=== PATIENT | female | born 1975 | race Caucasian/White ===

== ENCOUNTER → 2018-01-10 | Outpatient (CLI) | payer OTHER ==
[~2018-01-10] MED LIST: MULTI-VITAMIN1 EACH PO
--- NOTE | 2018-01-10 19:41 | Diagnostic Imaging Report ---
EXAMINATION: ABDOMEN-1VIEW (KUB) 01/10/2018 6:34 PM COMPARISON: 08/24/2017 INDICATION: Calculus of kidney DISCUSSION: 1 view of the abdomen (AP supine) Nonobstructive bowel gas pattern No evidence of pneumoperitoneum. Questionable 3 mm calcification projected over the midpole of the left kidney. Bones and soft tissues are unremarkable. IMPRESSION: Nonobstructive bowel gas pattern. Questionable 3 mm calcification projected over the midpole of the left kidney. Hermes Singleton MD Signed by: Dr. Hermes Singleton M.D. on 01/10/2018 7:38 PM
== END | disposition home or self-care (01) ==
LOC: RAD 18:04
PROVIDERS: ATTEND Urology
DX: N20.0 Calculus of kidney (principal)
CPT/HCPCS: 74018; 81025

== ENCOUNTER → 2018-01-18 | Outpatient (CLI) | payer OTHER ==
--- NOTE | 2018-01-18 18:39 | Diagnostic Imaging Report ---
PROCEDURE: CT ABDOMEN AND PELVIS WITHOUT CONTRAST TECHNIQUE: The abdomen and pelvis were scanned utilizing a multidetector helical scanner from the diaphragm to the lesser trochanter after the oral administration of water. No IV contrast was administered per protocol. Coronal and sagittal multiplanar reformations were obtained. COMPARISON: Patients [facility], CT, CT ABDOMEN/PELVIS , 08/03/2017, 13:21. INDICATIONS: CALCULUS OF KIDNEY FINDINGS: ABSENCE OF INTRAVENOUS CONTRAST DECREASES SENSITIVITY FOR DETECTION OF FOCAL LESIONS AND VASCULAR PATHOLOGY. LOWER THORAX: Unremarkable HEPATOBILIARY: No focal hepatic lesions. No biliary ductal dilatation. Gallbladder is unremarkable. SPLEEN: No splenomegaly. PANCREAS: No focal masses or ductal dilatation. ADRENALS: No adrenal nodules. KIDNEYS/URETERS: The previously visualized 0.5 cm nonobstructing calculus in the left interpolar region and 0.3 cm non-obstructing calculus in the posterior mid to inferior left kidney are not seen on the current exam. There are 4 stable punctate hyperdensities, likely reflecting nonobstructing calculi and/or Ciro's plaques (series 3, images 56, 62 and 72). No other renal or ureteral calculi. No hydronephrosis or obstruction. No significant perinephric stranding. Lobulated appearance of lower aspect of bilateral kidneys may represent cortical scarring. PELVIC ORGANS/BLADDER: No focal lesions or bladder calculi. The uterus is unremarkable. No adnexal masses. PERITONEUM / RETROPERITONEUM: No free air or fluid. LYMPH NODES: No lymphadenopathy. VESSELS: Unremarkable. GI TRACT: No bowel dilation or evidence of obstruction. Appendix is well identified and normal in caliber. BONES AND SOFT TISSUES: No aggressive lytic lesion. Stable tiny fat-containing of multiple hernia. IMPRESSION: 1. 4 stable punctate hyperdensities in the left kidney likely represent nonobstructing calculi and/or Ciro's plaques. Previously visualized 0.5 and 0.3 cm nonobstructing calculi in the left kidney are not seen on the current exam. No right renal, any ureteral calculi, hydronephrosis, or obstruction. Yayo Kelly M.D. Dictated by: Yayo Kelly M.D. on 01/18/2018 at 18:40 Electronically approved by: Yayo Kelly M.D. on 01/18/2018 at 18:40
== END ==
LOC: CT 15:50
PROVIDERS: ATTEND Urology
DX: N20.0 Calculus of kidney (principal)
CPT/HCPCS: 74176; 81025

== ENCOUNTER 2018-11-12 07:19 | Emergency (ER) | payer OTHER ==
[~2018-11-12] VITALS: Ht 160 cm; Wt 81.6 kg
--- OUTSIDE RECORDS SUMMARY | 2018-11-12 07:22 | XMS REPORT ---
Author Author [facility] Address Unknown Phone Unavailable Care Team Providers Care [employer] Stitcher Name Role Phone BIBIANA VILLA Unavailable Unavailable Payers Payer Name Policy Type Policy Number Effective Date Expiration Date Problems This patient has no known problems. Allergies, Adverse Reactions, Alerts Allergy Name Allergy Type Status Severity Reaction(s) Onset Date Inactive Date Treating Clinician Comments No Known Allergies DA Active U 2011-10-20 00:00:00 Medications This patient has no known medications. Results Test Description Test Time Test Comments Text Results Atomic Results Result Comments CT ABDOMEN/PELVIS WO [place] [address] Patient Name: HERMES VIDAL V MR #: [id number] : 1975 Age/Sex: 42/F Req #: [id number] Adm Physician: Ordered by: BIBIANA VILLA MD Report #: [id number] Location: CT Room/Bed: Procedure: [id number] CT/CT ABDOMEN/PELVIS WO Exam Date: 01/18/18 Exam Time: 1650 REPORT STATUS: Signed PROCEDURE: CT ABDOMEN AND PELVIS WITHOUT CONTRAST TECHNIQUE: The abdomen and pelvis were scanned utilizing a multidetector helical scanner from the diaphragm to the lesser trochanter after the oral administration of water. No IV contrast was administered per protocol. Coronal and sagittal multiplanar reformations were obtained. COMPARISON: [facility], CT, CT ABDOMEN/PELVIS , 08/03/2017, 13:21. INDICATIONS: CALCULUS OF KIDNEY FINDINGS: ABSENCE OF INTRAVENOUS CONTRAST DECREASES SENSITIVITY FOR DETECTION OF FOCAL LESIONS AND VASCULAR PATHOLOGY. LOWER THORAX: Unremarkable HEPATOBILIARY: No focal hepatic lesions. No biliary ductal dilatation. Gallbladder is unremarkable. SPLEEN: No splenomegaly. PANCREAS: No focal masses or ductal dilatation. ADRENALS: No adrenal nodules. KIDNEYS/URETERS: The previously visualized 0.5 cm nonobstructing calculus in the left interpolar region and 0.3 cm non- obstructing calculus in the posterior mid to inferior left kidney are not seen on the current exam. There are 4 stable punctate hyperdensities, likely reflecting nonobstructing calculi and/or Ciro's plaques (series 3, images 56, 62 and 72). No other renal or ureteral calculi. No hydronephrosis or obstruction. No significant perinephric stranding. Lobulated appearance of lower aspect of bilateral kidneys may represent cortical scarri ng. PELVIC ORGANS/BLADDER: No focal lesions or bladder calculi. The uterus is unremarkable. No adnexal masses. PERITONEUM / RETROPERITONEUM: No free air or fluid. LYMPH NODES: No lymphadenopathy. VESSELS: Unremarkable. GI TRACT: No bowel dilation or evidence of obstruction. Appendix is well identified and normal in caliber. BONES AND SOFT TISSUES: No aggressive lytic lesion. Stable tiny fat-containing of multiple hernia. IMPRESSION: 1. 4 stable punctate hyperdensities in the left kidney likely represent nonobstructing calculi and/or Ciro's plaques. Previously visualized 0.5 and 0.3 cm nonobstructing calculi in the left kidney are not seen on the current exam. No right renal, any ureteral calculi, hydronephrosis, or obstruction. Jeb Kelly M.D. Dictated by: Jeb Kelly M.D. on 01/18/2018 at 18:40 Electronically approved by: Jeb Kelly M.D. on 01/18/2018 at 18:40 Dictated By: JEB KELLY MD 39 Transcribed By: AIDEN on 01/18/181839 COPY TO: BIBIANA VILLA MD ABDOMEN-1VIEW (KUB) [place] [address] Patient Name: HERMES VIDAL V MR #: [id number] : 1975 Age/Sex: 42/F Req #: [id number] Adm Physician: Ordered by: BIBIANA VILLA MD Report #: [id number] Location: [facility] Room/Bed: Procedure: [id number] DX/ABDOMEN-1VIEW (KUB) Exam Date: 01/10/18 Exam Time: 1834 REPORT STATUS: Signed EXAMINATION: ABDOMEN-1VIEW (KUB) 01/10/2018 6:34 PM COMPARISON: 08/24/2017 INDICATION: Calculus of kidney DISCUSSION: 1 view of the abdomen (AP supine) Nonobstructive bowel gas pattern No evidence of pneumoperitoneum. Questionable 3 mm calcification projected over the midpole of the left kidney. Bones and soft tissues are unremarkable. IMPRESSION: Nonobstructive bowel gas pattern. Questionable 3 mm calcification projected over the midpole of the left kidney. Monique Singleton MD Signed by: Dr. Monique Singleton M.D. on 01/10/2018 7:38 PM Dictated By: MONIQUE SINGLETON MD 37 Transcribed By: SUE on 01/10/181937 COPY TO: BIBIANA VILLA MD ABDOMEN-1VIEW (KUB) [place] [address] Patient Name: HERMES VIDAL V MR #: [id number] : 1975 Age/Sex: 42/F Req #: [id number] Adm Physician: Ordered by: BIBIANA VILLA MD Report #: [id number] Location: OR Room/Bed: Procedure: [id number] DX/ABDOMEN-1VIEW (KUB) Exam Date: 08/24/17 Exam Time: 0720 REPORT STATUS: Signed PROCEDURE: X-RAY ABDOMEN - KUB COMPARISON: KUB 07/20/2017. CT abdomen and pelvis without contrast 08/03/2017.. INDICATIONS: PRE-OP FINDINGS: 3-4 mm left upper pole renal calculus is unchanged. Additional smaller calculi are identified on the comparison CT scan are not visualized by plain radiography. No additional renal, ureteral, or bladder calculi. Bowel gas pattern is nonobstructive. Regional skeletal structures are intact. CONCLUSION: 3 mm left upper pole renal calculus. Additional punctate left renal calculi described on the comparison CT examination are not visualized by plain radiography. Dictated by: Arnaldo Griffin M.D. on 08/24/2017 at 7:48 Electronically approved by: Arnaldo Griffin M.D. on 08/24/2017 at 7:48 Dictated By: ARNALDO GRIFFIN MD E lectronically Signed By: ARNALDO GRIFFIN MD on 08/24/1748 Transcribed By: AIDEN on 08/24/1748 COPY TO: BIBIANA VILLA MD CT ABDOMEN/PELVIS [place] [address] Patient Name: HERMES VIDAL V MR #: [id number] : 1975 Age/Sex: 42/F Req #: [id number] [facility] Physician: Ordered by: BIBIANA VILLA MD Report #: [id number] Location: CT Room/Bed: Procedure: [id number] CT/CT ABDOMEN/PELVIS WO Exam Date: 08/03/17 Exam Time: 1325 REPORT STATUS: Signed PROCEDURE: CT ABDOMEN AND PELVIS WITHOUT CONTRAST TECHNIQUE: The abdomen and pelvis were scanned utilizing a multidetector helical scanner from the diaphragm to the lesser trochanter after the oral administration of water. No IV contrast was administered because of renal stone protocol. Coronal and sagittal multiplanar reformations were obtained. DLP: 585.2 mGy-cm COMPARISON: Abdominal CT from 01/20/2015 INDICATIONS: CALCULUS OF KIDNEY FINDINGS: ABSENCE OF INTRAVENOUS CONTRAST DECREASES SENSITIVITY FOR DETECTION OF FOCAL LESIONS AND VASCULAR PATHOLOGY. LOWER THORAX: Normal. HEPATOBILIARY: No focal hepatic lesions. No biliary ductal dilatation. SPLEEN: No splenomegaly. PANCREAS: No focal masses or ductal dilatation. ADRENALS: No adrenal nodules. KIDNEYS/URET ERS: No hydronephrosis or suspicious contour abnormalities. Mild left renal scarring. Non-obstructing left renal calculi measure up to 0.5 cm, approximately 5 noted although one or two of these may represent Ciro's plaques. No right renal calculi. No ureteral calculi. PELVIC ORGANS/BLADDER: Urinary bladder is collapsed, limiting evaluation. Otherwise, unremarkable. PERITONEUM / RETROPERITONEUM: No free air or fluid. LYMPH NODES: No lymphadenopathy. VESSELS: Unremarkable. GI TRACT: No distention or wall thickening. Few scattered colonic diverticula without dany dence of diverticulitis. Appendix is normal. BONES AND SOFT TISSUES: Unremarkable. IMPRESSION: 1. Left nephrolithiasis. 2. Mild colonic diverticulosis without evidence of diverticulitis. Dictated by: Cristian Rinaldi M.D. on 08/03/2017 at 13:56 Electronically approved by: Cristian Rinaldi M.D. on 08/03/2017 at 13:56 Dictated By: CRISTIAN RINALDI MD 1356 Transcribed By: AIDEN on 08/03/17 1356 COPY TO: BIBIANA VILLA MD ABDOMEN-1VIEW (KUB) [place] [address] Patient Name: HERMES VIDAL V MR #: [id number] : 1975 Age/Sex: 42/F Req #: [id number] Adm Physician: Ordered by: BIBIANA VILLA MD Report #: [id number] Location: Room/Bed: Procedure: [id number] DX/ABDOMEN-1VIEW (KUB) Exam Date: 07/20/17 Exam Time: 1545 REPORT STATUS: Signed PROCEDURE: X-RAY ABDOMEN - KUB COMPARISON: [facility], US, US RETROPERITONEAL ( KIDNEY )., 07/20/2017, 14:45. [facility], DX, ABDOMEN-1VIEW (KUB), 05/05/2015, 14:25. INDICATIONS: CALCULUS OF KIDNEY FINDINGS: There is a non-obstructed bowel-gas pattern. Punctate calcific density projected on the left renal shadow.. There are no acute osseous abnormalities. Facet arthropathy at left L4-L5. DJD of SI joints bilaterally. CONCLUSION: Left renal calculus. Gisela Paiz M.D. Dictated by: Gisela Paiz M.D. on 07/20/2017 at 16:25 Electronically approved by: Gisela Paiz M.D. on 07/20/2017 at 16:25 Dictated By: SEBASTIAN PAIZ MD, MD 24 Transcribed By: AIDEN on 07/20/171624 COPY TO: BIBIANA VILLA MD RENAL RETROPERITONEAL COMP [place] [address] Patient Name: HERMES VIDAL V MR #: [id number] : 1975 Age/Sex: 42/F Req #: [id number] [facility] Physician: Ordered by: BIBIANA VILLA MD Report #: [id number] Location: US Room/Bed: Procedure: [id number] US/US RENAL RETROPERITONEAL COMP Exam Date: 07/20/17 Exam Time: 1445 REPORT STATUS: Signed EXAM: Renal Ultrasound INDICATION: CALCULUS OF KIDNEY COMPARISON: 12/26/2014. TECHNIQUE: Transverse and longitudinal images of the kidneys and bladder were obtained. FINDINGS: Right Kidney: Length: 11.8 cm Appearance: Normal echogenicity. Collecting system: No hydronephrosis Stones: No shadowing echogenic focus in the lower pole measures 0.7 x 0.7 x 0.6 cm. Cyst/Mass: None Left Kidney: Length: 11.3 cm Appearance: Normal echogenicity. Collecting system: No hydronephrosis Stones: No shadowing echogenic focus in the lower pole measures 0.7 x 1.1 x 0.6 cm. Cyst/Mass: None Bladder: Normal. Bilateral ureteral jets noted. IMPRESSION: Single bilateral nonobstructing renal calculi, the largest on the left lower pole measuring 1.1 cm. No hydronephrosis. Signed by: Dr. Gisela Paiz M.D. on 07/20/2017 4:49 PM Dictated By: SEBASTIAN PAIZ MD, MD 48 Transcribed By: SUE on 07/20/171648 COPY TO: BIBIANA VILLA MD
[2018-11-12] MEDS ORDERED: KETOROLAC TROMETHAMINE 30 MG/ML VIAL IV STA (07:54)
[2018-11-12 08:11] LABS: CLARITY,URINE HAZY (CLEAR); COLOR,URINE BROWN (YELLOW)
[2018-11-12 08:12] LABS: BACTERIA,URINE FEW /HPF; BILIRUBIN,URINE 1+ (NEGATIVE); EPITHELIAL CELLS,URINE FEW /LPF; KETONES,URINE NEGATIVE (NEGATIVE); LEUKOCYTE ESTERASE ,URINE TRACE (NEGATIVE); NITRITE,URINE NEGATIVE (NEGATIVE); PROTEIN,URINE DIPSTICK 2+ (NEGATIVE); RBC,URINE >50 /HPF (0-5); URINE UROBILINOGEN 0.2 mg/dL (0.2 - 1); WBC,URINE (MAN) 0-5 /HPF (0-5)
[2018-11-12 08:13] LABS: AMORPHOUS SEDIMENT,URINE MODERATE (FEW)
[2018-11-12 08:14] LABS: PREGNANCY TEST, URINE NEGATIVE (NEGATIVE)
[2018-11-12 08:14] LABS: BASOPHILS % 0.6 % (0.0-1.0); EOSINOPHILS # (AUTO) 0.2 (0.0-0.4); EOSINOPHILS % 2.7 % (0.0-6.0); HEMATOCRIT 39.7 % (34.2-44.1); HEMOGLOBIN 13.3 g/dL (12.0-16.0); LYMPHOCYTES # (AUTO) 1.6 (1.0-3.2); MEAN CORPUSCULAR HGB CONC 33.5 g/dL (31-35); MEAN CORPUSCULAR VOLUME 86.5 fL (81-99); MONOCYTES # (AUTO) 0.4 (0.2-0.8); MONOCYTES % 6.6 % (4.4-11.3); NEUTROPHILS # (AUTO) 4.1 (2.1-6.9); NEUTROPHILS % 64.2 % (38.7-80.0); PLATELET COUNT 311 x10e3/uL (140-360); RED BLOOD COUNT 4.59 x10e6/uL (3.6-5.1); RED CELL DISTRIBUTION WIDTH 12.4 % (11.7-14.4)
[2018-11-12] MEDS ORDERED: ONDANSETRON HCL INJ 2MG/ML 2ML 2 MG/ML VIAL IV NR (08:19)
[2018-11-12 08:33] LABS: ANION GAP 13.9 mmol/L (8-16); BLOOD UREA NITROGEN 10 mg/dL (7-26); BUN/CREATININE RATIO 14 (6-25); CALCIUM 9.3 mg/dL (8.4-10.2); CARBON DIOXIDE 21 mmol/L (22-29); CHLORIDE 102 mmol/L (98-107); EST GLOMERULAR FILTRATION RATE > 60 ML/MIN (60-); GLUCOSE 92 mg/dL (74-118); POTASSIUM 3.9 mmol/L (3.5-5.1); SODIUM 133 mmol/L (136-145)
--- NOTE | 2018-11-12 09:17 | Diagnostic Imaging Report ---
EXAM: CT Abdomen and Pelvis WITHOUT contrast INDICATION: Bilateral flank pain with dark urine x1 week. ^STONE PROTOCOL COMPARISON: CT abdomen and pelvis 01/18/2018. TECHNIQUE: Abdomen and pelvis were scanned utilizing a multidetector helical scanner from the lung base to the pubic symphysis without administration of IV contrast. Absence of intravenous contrast decreases sensitivity for detection of focal lesions and vascular pathology. Coronal and sagittal reformations were obtained. Stone protocol is performed. IV CONTRAST: None ORAL CONTRAST: Water COMPLICATIONS: None RADIATION DOSE: Total DLP: 627.05 mGy*cm Estimated effective dose: (DLP x 0.015 x size factor) mSv CTDIvol has been reviewed. It is below the limits set by the Radiation Protocol Committee (RPC). FINDINGS: LINES and TUBES: None. LOWER THORAX: Unremarkable HEPATOBILIARY: No focal hepatic lesions. No biliary ductal dilation. GALLBLADDER: No radio-opaque stones or sludge. No wall thickening. SPLEEN: No splenomegaly. PANCREAS: No focal masses or ductal dilatation. ADRENALS: No adrenal nodules KIDNEYS/URETERS: No hydronephrosis. Chronic scarring left kidney. No cystic or solid mass lesions. 4 punctate 1 to 2 mm stones in the left kidney. Punctate hyperdensities in the right kidney, likely developing stones. GI TRACT: No abnormal distention, wall thickening, or evidence of bowel obstruction. Appendix is normal. PELVIC ORGANS/BLADDER: 2 mm hyperdensity in the dependent portion of the bladder (series 3, image 162). Consistent with a recently passed stone. LYMPH NODES: No lymphadenopathy. VESSELS: Unremarkable. PERITONEUM / RETROPERITONEUM: No free air or fluid. BONES: Unremarkable. SOFT TISSUES: Unremarkable. IMPRESSION: 1. Unchanged 4 left renal stones. Subtle hyperdensities in the right kidney, likely developing stones. 2. 0.2 cm stone in the bladder. No hydronephrosis. Signed by: Dr. Braden Parker M.D. on 11/12/2018 9:14 AM
[2018-11-12] MEDS ORDERED: SODIUM CHLORIDE 0.9% 1000ML 1,000 ML ONE (09:38)
[2018-11-12] MEDS ORDERED: SODIUM CHLORIDE 0.9% 1000ML 1,000 ML IV SCH (09:45)
[2018-11-12] MEDS ORDERED: ACETAMINOPHEN 325 MG TAB PO ONE (10:15)
== END 2018-11-12 11:11 | disposition home or self-care (01) ==
LOC: ER 07:19
DX: M54.5 Low back pain (principal); R11.2 Nausea with vomiting, unspecified; R31.9 Hematuria, unspecified; N20.0 Calculus of kidney
CPT/HCPCS: 36415; 74176; 80048; 81001; 81025; 85025; 99284; J1885; J2405; J7030

== ENCOUNTER → 2018-11-16 | Outpatient (CLI) | payer OTHER ==
[~2018-11-16] MED LIST changes: +FUROSEMIDE INJ 10 MG/ML 4 ML VIAL ONE
--- NOTE | 2018-11-16 11:01 | Diagnostic Imaging Report ---
Exam: Abdominal film Clinical History: Kidney stones Comparison: CT abdomen and pelvis 11/12/2018 DISCUSSION: No calcifications are identified projecting over the renal shadows or expected ureteral courses. Punctate bilateral renal calculi described on the comparison CT are not identified by plain radiography. Bowel gas pattern shows no dilated, air-filled loops of bowel. No mass effect or organomegaly. Regional skeletal structures are intact. IMPRESSION: Punctate bilateral renal calculi described on the comparison CT are not identified by plain radiography. Signed by: Dr. Yordan Jaquez M.D. on 11/16/2018 10:58 AM
--- NOTE | 2018-11-16 17:19 | Diagnostic Imaging Report ---
Renal Scan with Lasix [place] Clinical information: Renal calculi Technique: Following intravenous administration of 11.5 mCi of Tc-99m MAG3, dynamic images of the kidneys in the posterior projection were obtained through 40 minutes. Lasix 40 mg was administered intravenously at 40 minutes post injection of the tracer. Report: Left kidney: Perfusion of the left kidney is prompt. The kidney has a distorted reniform shape with slightly irregular contours. Extraction of tracer from the blood pool by the remaining renal parenchyma is normal. Clearance of tracer from the renal parenchyma is prompt. The pelvicalyceal system is not dilated although calices are prominent throughout the kidney. Some increased pooling of tracer is seen within the prominent calices. Drainage of tracer from the pelvicalyceal system is prompt and adequate prior to administration of Lasix. No significant stasis of tracer is seen within the left ureter. Right kidney: Perfusion to the right kidney is prompt. The right kidney has a normal reniform shape. Extraction of tracer by the renal parenchyma is normal. Clearance of tracer from the renal parenchyma is prompt. The pelvicalyceal system is not dilated although some of the calices are slightly prominent. Some increased pooling of tracer is seen within the pelvicalyceal system. Drainage of tracer from the pelvicalyceal system is prompt and adequate prior to administration of Lasix. No significant stasis of tracer is seen within the right ureter. Differential renal function: The left kidney contributes 40% of total renal function and the right kidney contributes 60% (normal 43-57%). Impression: 1. Some scarring is present in the left kidney and this accounts for the decreased differential function of 40%. The function of the remaining renal parenchyma is normal. No hydronephrosis is present. No physiologically significant obstruction of the renal collecting system is present. 2. The function of the right kidney is generally normal. No hydronephrosis is present. No physiologically significant obstruction of the renal collecting system is present. Signed by: Dr. Zunilda Beal M.D. on 11/16/2018 5:16 PM
== END ==
LOC: NM 10:02
PROVIDERS: ATTEND Urology
DX: N20.0 Calculus of kidney (principal)
CPT/HCPCS: 74018; 78708; A9562; J1940

== ENCOUNTER → 2019-01-03 | Outpatient (CLI) | payer OTHER ==
[~2019-01-03] MED LIST changes: -FUROSEMIDE INJ 10 MG/ML 4 ML VIAL ONE; +IOPAMIDOL 370 MG/ML 200 ML INFUS..BTL INJ ONE; +SODIUM CHLORIDE 0.9% 50ML 50 ML ONE
--- NOTE | 2019-01-03 12:27 | Diagnostic Imaging Report ---
EXAM: CT Abdomen and pelvis without and with contrast INDICATION: Renal calculus, gross hematuria COMPARISON: CT abdomen and pelvis without contrast 11/12/2018. TECHNIQUE: Abdomen and pelvis were scanned utilizing a multidetector helical scanner from the lung base to the pubic symphysis after administration of IV contrast. Noncontrast images were obtained through the abdomen and pelvis. Arterial and portal venous phase images were obtained to the abdomen. Delayed images were obtained through the abdomen and pelvis. Coronal and sagittal reformations were obtained. Combination of renal mass protocol and hematuria protocol was performed. IV CONTRAST: 100 cc of Isovue-370. ORAL CONTRAST: Water COMPLICATIONS: None RADIATION DOSE: Total DLP: 1948.1 mGy*cm Estimated effective dose: (DLP x 0.015 x size factor) mSv Dose modulation, iterative reconstruction, and/or weight based adjustment of the mA/kV was utilized to reduce the radiation dose to as low as reasonably achievable. FINDINGS: LINES and TUBES: None. LOWER THORAX: Unremarkable HEPATOBILIARY: No focal hepatic lesions. No biliary ductal dilation. GALLBLADDER: Decompressed and otherwise unremarkable in appearance. SPLEEN: No splenomegaly. PANCREAS: No focal masses or ductal dilatation. ADRENALS: No adrenal nodules KIDNEYS/URETERS: No hydronephrosis. No cystic or solid mass lesions. There are multiple punctate 1 to 2 mm left-sided renal stones, some of which are slightly more conspicuous, for example in left lower pole on image 68. Two punctate 1 mm stones in the left upper pole kidney are new (series 3, images 46 and 47). No right renal stone. There are bilateral wedge-shaped cortical renal defects, left greater than right. Delayed images demonstrates opacification of the collecting system and portions of the bilateral ureters. No evidence of urothelial lesion. Bilateral ureteral jets are present. GI TRACT: No abnormal distention, wall thickening, or evidence of bowel obstruction. Appendix is normal. PELVIC ORGANS/BLADDER: The bladder is partially decompressed. Contrast opacifies the bladder. There is ill-defined dependent hypodense contents within the right superior posterior aspect of the bladder on series 7, image 163. LYMPH NODES: No lymphadenopathy. VESSELS: Unremarkable. PERITONEUM / RETROPERITONEUM: No free air or fluid. BONES: Unremarkable. SOFT TISSUES: Unremarkable. IMPRESSION: Ill-defined hypodense contents in the right superior posterior aspect of the bladder. Given the layering appearance, this could represent hemorrhagic products or debris, although underlying mass is not excluded by CT. Cystoscopy may be considered for further evaluation. Multiple punctate 1 to 2 mm nonobstructing left-sided renal stones, some of which are slightly increased in size and others of which are new. Bilateral renal scarring, left greater than right. Signed by: Dr. Sylvia Solorio MD on 01/03/2019 12:23 PM
== END ==
LOC: CT 10:09
PROVIDERS: ATTEND Urology
DX: N20.0 Calculus of kidney (principal); R31.0 Gross hematuria
CPT/HCPCS: 74178; 81025; Q9967

== ENCOUNTER → 2019-09-21 | Outpatient (CLI) | payer OTHER ==
[~2019-09-21] MED LIST changes: -IOPAMIDOL 370 MG/ML 200 ML INFUS..BTL INJ ONE; -SODIUM CHLORIDE 0.9% 50ML 50 ML ONE
--- NOTE | 2019-09-21 16:37 | Diagnostic Imaging Report ---
TECHNIQUE: CT of the abdomen and pelvis WITHOUT intravenous contrast and WITHOUT oral contrast. Dose modulation, iterative reconstruction, and/or weight-based adjustment of the mA/kV was utilized to reduce the radiation dose to as low as reasonably achievable. INDICATION: 44-year-old woman with calculus of kidney. COMPARISON: Abdomen and pelvis CT 01/03/2019. FINDINGS: ABSENCE OF INTRAVENOUS CONTRAST DECREASES SENSITIVITY FOR DETECTION OF FOCAL LESIONS AND VASCULAR PATHOLOGY. LOWER THORAX: Unremarkable. HEPATOBILIARY: No focal hepatic lesions. Gallbladder is unremarkable. No biliary ductal dilatation. SPLEEN: No splenomegaly. PANCREAS: No focal masses or ductal dilatation. ADRENALS: No adrenal nodules. KIDNEYS/URETERS: Unchanged cortical scarring of both kidneys. No hydronephrosis. Nonobstructive 0.2 cm calculi in the right kidney. Nonobstructing 0.2-0.3 cm nonobstructive calculi in the left kidney. PELVIC ORGANS/BLADDER: Uterus and both ovaries are grossly unremarkable. Bladder is under distended. PERITONEUM/RETROPERITONEUM: Trace free fluid in the pelvis, likely physiologic. No free air. LYMPH NODES: No lymphadenopathy. VESSELS: Unremarkable. GI TRACT: No distention or wall thickening. Few colonic diverticula. Normal appendix. BONES AND SOFT TISSUES: Unremarkable. IMPRESSION: No acute abnormalities in the abdomen or pelvis. Nonobstructive calculi in both kidneys.. Signed by: Can Rosas MD on 09/21/2019 4:33 PM
== END ==
LOC: CT 12:25
PROVIDERS: ATTEND Urology
DX: N20.0 Calculus of kidney (principal)
CPT/HCPCS: 74176; 81025

== ENCOUNTER → 2020-04-14 | Outpatient (CLI) | payer BC ==
--- NOTE | 2020-04-14 15:56 | Diagnostic Imaging Report ---
EXAM: CT Abdomen and Pelvis WITHOUT intravenous contrast INDICATION: Renal calculus COMPARISON: CT abdomen pelvis of 01/03/2019 and 09/21/2019 TECHNIQUE: Abdomen and pelvis were scanned utilizing a multidetector helical scanner from the lung base to the pubic symphysis without administration of IV contrast. Coronal and sagittal reformations were obtained. IV CONTRAST: None ORAL CONTRAST: None COMPLICATIONS: None RADIATION DOSE: Total DLP: 516 mGy*cm Dose modulation, iterative reconstruction, and/or weight based adjustment of the mA/kV was utilized to reduce the radiation dose to as low as reasonably achievable. FINDINGS: LOWER THORAX: Normal. HEPATOBILIARY: No focal hepatic lesions. No biliary ductal dilatation. The gallbladder appears unremarkable. SPLEEN: No splenomegaly. PANCREAS: No focal masses or ductal dilatation. ADRENALS: No adrenal nodules. KIDNEYS/URETERS: 2 mm and 3 mm calculi at the left ureterovesical junction. 3 mm left midpole and lower pole renal calculi. No hydronephrosis or hydroureter. PELVIC ORGANS/BLADDER: Unremarkable. PERITONEUM / RETROPERITONEUM: No free air or fluid. LYMPH NODES: No lymphadenopathy. VESSELS: Unremarkable. GI TRACT: No distention or wall thickening. Normal appendix. BONES AND SOFT TISSUES: No acute osseous injury. No suspicious lytic or blastic lesions. IMPRESSION: 2 mm and 3 mm left ureterovesical junction calculi. 3 mm left midpole and lower pole renal calculi. No hydronephrosis or hydroureter. Signed by: Ariadna Melendrez MD on 04/14/2020 3:53 PM
== END ==
LOC: CT 14:53
PROVIDERS: ATTEND Urology
DX: N20.0 Calculus of kidney (principal)
CPT/HCPCS: 74176

== ENCOUNTER → 2021-05-19 | Outpatient (CLI) | payer BC | LOC: RAD 16:15 | PROVIDERS: ATTEND Urology | DX: N20.0 Calculus of kidney (principal) | CPT/HCPCS: 74018; 81025 ==